=== PATIENT | male | born 1995 | race African-American/Black ===

== ENCOUNTER 2016-10-19 15:19 | Emergency (ER) | payer MEDICAID ==
[~2016-10-19] VITALS: Ht 182.9 cm; Wt 70.8 kg
--- NOTE | 2016-10-19 16:27 | Emergency Room Report ---
History of Present Illness General Chief Complaint: Lower Back Pain or Injury Source: Patient Present Illness HPI 21 YO Male presents to the ED c/o of low back pain rated as 5/10 in severity x 3 years. pt. states he was told by a doctor that he will receive something in the mail to make an appt. for imaging, however pt. states he wants to know sooner what is wrong with him. Pt. reports he went to another ED earlier which stated that he needs to see a primary care provider. Pt. denies new trauma or fall since the previous two evaluations. Pt. denies radiation of his pain down either legs. Denies weakness, fevers, chills, neck pain/stiffness, hx of cancer or recent spinal procedures. Denies numbness tingling or loss of sensation or gross motor movements of the extremities, incontinence of bowel or bladder. Denies CP, Palpitations, LOC, AMS, dizziness, Changes in Vision, Sensation, paresthesias, or a sudden severe headache. Allergies: Coded Allergies: No Known Allergies (Unverified , 10/19/16) Patient History Past Medical History: see triage record Past Surgical History: none Pertinent Family History: none Immunizations: UTD Reviewed Nursing Documentation: PMH: Agreed, PSxH: Agreed Nursing Documentation-PMH Past Medical History: No Stated History Review of Systems All Other Systems: negative except mentioned in HPI Physical Exam Vital Signs Date Time Temp Pulse Resp B/P Pulse Ox O2 Delivery O2 Flow Rate FiO2 10/19/16 15:30 98.4 69 18 114/67 100 Room Air Sp02 EP Interpretation: reviewed, normal General Appearance: no apparent distress, alert, GCS 15, non-toxic Head: normocephalic, atraumatic Eyes: bilateral eye PERRL, bilateral eye normal inspection ENT: hearing grossly normal, normal pharynx, no angioedema, normal voice Neck: full range of motion, supple/symm/no masses Respiratory: lungs clear, normal breath sounds, speaking full sentences Cardiovascular #1: regular rate, rhythm, no edema Rectal: deferred Genitourinary: normal inspection, no CVA tenderness Musculoskeletal: back normal, gait/station normal, normal range of motion, tender - paraspinal TTP, no midline TTP, no erythema, step-offs, or obvious deformities noted. Neurologic: alert, oriented x3, responsive, motor strength/tone normal, sensory intact, speech normal Psychiatric: judgement/insight normal, memory normal, mood/affect normal Skin: normal color, no rash, warm/dry, well hydrated Medical Decision Making PA Attestation Dr. Felton is my supervising Physician whom patient management has been discussed with. Diagnostic Impression: Primary Impression: Chronic back pain greater than 3 months duration Additional Impression: Encounter for medical screening examination ER Course Patient presents to the emergency department complaining of low back pain that radiates across the lower back x 3 years. pt. denies trauma or fall. Ddx considered: epidural abscess, fracture, sprain/strain, meningitis, spinal chord injury, chronic pain, slipped vertebral disk, sciatica. Vital signs reviewed and are WNL during ED visit. Pt. is afebrile with no signs of infection No new symptoms, and denies recent trauma. No saddle anesthesia noted, Pt. denies incontinence Neurovascular is intact FROM * Mild Tenderness to palpation to paraspinal muscles of the lower back, no spinous process tenderness, no midline tenderness. *Pt. describes pain today as moderate and radiates across the lower back. ORDERS: none warranted at this time. INTERVENTIONS: - D/w pt. that it sounds like he was already given a referral for MRI. d/w pt. that MRI's are performed as an outpatient. I do not suspect an emergent condition at this time. with current presentation pt. is stable for close outpatient follow up. D/W Pt. that for further pain management is it recommended to consult PCP or a Chronic Pain management doctor. A provider who can safely prescribe controlled substances with close follow up. DISCHARGE: At this time pt. is stable for d/c to home. Will provide printed patient care instructions, and any necessary prescriptions. Care plan and follow up instructions have been discussed with the patient prior to discharge. Last Vital Signs Date Time Temp Pulse Resp B/P Pulse Ox O2 Delivery O2 Flow Rate FiO2 10/19/16 15:30 98.4 69 18 114/67 100 Room Air Disposition: HOME, SELF-CARE Condition: Stable Scripts Ibuprofen* (MOTRIN*) 400 Mg Tablet 400 MG ORAL THREE TIMES A DAY, #20 TAB 0 Refills Prov: Guerda Abreu.Barbara. 10/19/16 Patient Instructions: Back Pain, Adult, Medical Screening Exam Additional Instructions: Take medications as directed. Follow up with PCP in 3-5 days Return sooner to ED if new symptoms occur, or current symptoms become worse. *See list of free/reduced cost clinics for follow up if you do not have a primary care provider - Please note that this Emergency Department Report was dictated using [employer] top paver operator technology software, occasionally this can lead to erroneous entry secondary to interpretation by the dictation equipment. Guerda Abreu Oct 19, 2016 16:27
[2016-10-19] MEDS ORDERED: IBUPROFEN400 MG ORAL (16:28)
[2016-10-19 17:54] VITALS: BP 114/67
== END 2016-10-19 17:55 | disposition home or self-care (01) ==
LOC: EMR 15:23
DX: G89.29 Other chronic pain (principal); M54.5 Low back pain
CPT/HCPCS: 99283